=== PATIENT | female | born 2000 ===

== ENCOUNTER 2021-06-13 15:10 | Emergency (ER) | payer OTHER ==
[~2021-06-13] VITALS: Ht 162.6 cm; Wt 88.9 kg
[2021-06-13 20:23] VITALS: BP 124/71
== END 2021-06-13 20:30 | disposition home or self-care (01) ==
LOC: EMS 15:29
DX: R53.81 Other malaise (principal); R06.02 Shortness of breath; Z20.822 Contact with and (suspected) exposure to COVID-19; F17.210 Nicotine dependence, cigarettes, uncomplicated
CPT/HCPCS: 99283; U0003